=== PATIENT | male | born 1970 | race Hispanic/Latino ===

== ENCOUNTER 2019-06-04 00:12 | Emergency (ER) | payer BC, OTHER, SELFPAY ==
[2019-06-04] MEDS ORDERED: Adacel (T-DAP) 0.5 ML SYRINGE ONE (01:10)
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
== END 2019-06-04 01:48 | disposition home or self-care (01) ==
LOC: ERS 00:12
DX: S01.01XA Laceration without foreign body of scalp, initial encounter (principal); M10.9 Gout, unspecified; F17.210 Nicotine dependence, cigarettes, uncomplicated; Z23 Encounter for immunization; W22.8XXA Striking against or struck by other objects, initial encounter
CPT/HCPCS: 12001; 70450; 90471; 90715

== ENCOUNTER 2019-06-14 14:15 | Emergency (ER) | payer SELFPAY | END 2019-06-14 15:09 | disposition home or self-care (01) | LOC: ERS 14:15 | DX: S01.01XD Laceration without foreign body of scalp, subsequent encounter (principal); M10.9 Gout, unspecified; F17.210 Nicotine dependence, cigarettes, uncomplicated; Z71.6 Tobacco abuse counseling; W25.XXXD Contact with sharp glass, subsequent encounter | CPT/HCPCS: 99406 ==

== ENCOUNTER 2023-03-01 10:16 | Observation (INO) | payer BC, SELFPAY ==
[2023-03-01] MEDS ORDERED: Boostrix 0.5 ML (Tdap) VIAL (>/=7 yrs of age) ONE (10:53)
[2023-03-01] MEDS ORDERED: Cyclobenzaprine 10 MG TAB PO PRN (12:04)
[2023-03-01] MEDS ORDERED: traMADol HCl 50 MG TAB PO PRN (12:04)
[2023-03-01] MEDS ORDERED: Sodium Chloride 0.9% 1,000 ML IV SCH ×2 (12:15→15:15)
[2023-03-01 12:24] LABS: #Basophils 0.1 thou/uL (0.0-0.2); #Eosinphils 0.7 thou/uL (0.0-0.7); #Monocytes 0.7 thou/uL (0.11-0.59); #Neutrophils 7.4 thou/uL (1.40-6.50); %Basophils 0.8 % (0.0-1.0); %Eosinophils 7.2 % (0.0-10.0); %Lymphocytes 12.6 % (21.0-51.0); %Monocytes 6.6 % (0.0-10.0); %Neutrophils 72.4 % (42.0-75.0); Hemoglobin 15.6 g/dL (14.0-18.0); Mean Corpuscular HGB CONC 33.9 g/dL (32.0-36.0); Mean Corpuscular Hemoglobin 30.4 pg (27.0-31.0); Mean Corpuscular Volume 89.5 fl (78.0-98.0); Mean Platelet Volume 11.5 fL (7.4-10.4); Platelet Count 217 10x3/uL (130-400); RBC Distribution Width 13.2 % (11.5-14.5); Red Blood Cell (RBC) Count 5.14 mill/uL (4.70-6.10); White Blood Cell (WBC) Count 10.2 10x3/uL (4.8-10.8)
[2023-03-01 12:33] LABS: PTT 29.9 sec (22.9-36.1); Prothrombin Time 13.6 sec (12.0-14.7)
[2023-03-01 12:41] VITALS: BMI 34.7
[2023-03-01 12:41] LABS: ALT (SGPT) 22 U/L (8-55); AST (SGOT) 19 U/L (5-34); Albumin 4.4 g/dL (3.5-5.0); Alkaline Phosphatase 117 U/L (40-110); Anion Gap 13 mmol/L (10-20); BUN (Urea Nitrogen) 26 mg/dL (8.4-25.7); Bilirubin, Total 0.7 mg/dL (0.2-1.2); Calc. Creatinine Clearance 0 mL/min (70-130); Calcium 9.3 mg/dL (7.8-10.44); Carbon Dioxide 20 mmol/L (22-29); Chloride 108 mmol/L (98-107); Estimated GFR 55; Globulin 3.7 g/dL (2.4-3.5); Glucose 95 mg/dL (70-105); Potassium 3.7 mmol/L (3.5-5.1); Protein, Total 8.1 g/dL (6.0-8.3); Sodium 137 mmol/L (136-145)
[2023-03-01 15:45] VITALS: TEMP 97.8
[2023-03-01] MEDS ORDERED: traMADol HCl 50 MG TAB PO SCH (18:00)
[2023-03-01] MEDS ORDERED: fentaNYL PF 100 MCG/2 ML SYRINGE ONE (18:45)
[2023-03-01 18:54] VITALS: BP 128/80
[2023-03-01] MEDS ORDERED: Vancomycin 1 GM VIAL ONE (19:00)
[2023-03-01] MEDS ORDERED: Bacitracin Zinc Ointment 30 gm TUBE ONE (19:00)
[2023-03-01] MEDS ORDERED: Bupivacaine PF 0.5% 30 ML VIAL ONE (19:00)
[2023-03-01] MEDS ORDERED: Sevoflurane 250 ML INH ANEST BOTTLE ONE (19:03)
[2023-03-01] MEDS ORDERED: Lidocaine 1% PF 5 ML VIAL ONE (19:32)
[2023-03-01] MEDS ORDERED: PROPOFOL 200 MG/20 ML VIAL ONE (19:32)
[2023-03-01] MEDS ORDERED: Ondansetron PF 4 MG/2 ML Vial ONE (19:32)
[2023-03-01] MEDS ORDERED: Promethazine HCl 25 MG/ML VIAL IM PRN (19:36)
[2023-03-01] MEDS ORDERED: Milk Of Magnesia 30 ML UDCUP PO PRN (19:36)
[2023-03-01] MEDS ORDERED: HYDROcodone/Acetaminophen 5/325 mg Tablet PO PRN (19:36)
[2023-03-01] MEDS ORDERED: HYDROcodone/Acetaminophen 10/325 mg Tablet PO PRN (19:36)
[2023-03-01] MEDS ORDERED: TETANUS, DIPHTHERIA TOX,ADULT (TDVAX) 0.5 ML VIAL IM ONE (19:36)
[2023-03-01] MEDS ORDERED: Morphine 4 MG/ML VIAL SLOW IVP PRN (19:36)
[2023-03-01] MEDS ORDERED: Ondansetron PF 4 MG/2 ML Vial SLOW IVP PRN (19:36)
[2023-03-01] MEDS ORDERED: Acetaminophen 325 MG TAB PO PRN (19:36)
[2023-03-01] MEDS ORDERED: Meperidine HCl/PF 25 MG/ML VIAL IM PRN (19:44)
[2023-03-01] MEDS ORDERED: VANC FS SCH (19:45)
[2023-03-01] MEDS ORDERED: ANTIBIOTICS FS SCH (19:45)
[2023-03-01] MEDS ORDERED: Aspirin 81 mg Enteric Coated Tablet PO SCH (21:00)
[2023-03-01] MEDS ORDERED: Ketorolac Tromethamine 30 MG/ML VIAL ONE (21:10)
[2023-03-01] MEDS ORDERED: VANCOMYCIN 1.75 GM/500 ML BAG 1.75 GM in Premix Bag 1 BAG IVPB SCH (22:00)
[2023-03-02] MEDS ORDERED: Polyethylene Glycol 3350 17 GM Packet PO SCH (09:00)
[2023-03-02] MEDS ORDERED: Saccharomyces boulardii 250 MG CAP PO SCH (09:00)
== END 2023-03-01 21:45 | disposition home or self-care (01) ==
LOC: ERS 10:16 → ERHOLD 12:03
PROVIDERS: ADMIT Surgery; ATTEND Surgery
PROC: 0XJ Anatomical Regions, Upper Extremities, Inspection (ICD-10-PCS; principal; 2023-03-01)
DX: S61.432A Puncture wound without foreign body of left hand, initial encounter (principal); W34.010A Accidental discharge of airgun, initial encounter
CPT/HCPCS: 36415; 71045; 80053; 85025; 85610; 85730; 86850; 86900; 86901; 90471; 90715; 93005; G0378; J1885; J2405; J2704; J3370; J7050; S0020